=== PATIENT | female | born 1935 ===

== ENCOUNTER 2020-06-12 18:05 | Inpatient (IN) ==
[2020-06-12] MEDS ORDERED: Ondansetron 4 mg VIAL 2 MG/ML 2 ml VIAL IV PRN (20:21)
[2020-06-12] MEDS ORDERED: Iohexol 350 (CONTRAST) 500 ML MDV IV ONE (21:47)
[2020-06-13] MEDS: Heparin 5000 UNITS/ML 1 mL VIAL SUBCUT SCH ×2 (00:04→06:04)
[2020-06-13] MEDS: cefTRIAXone 1 gm/50 mL NS BAG 1 GM/50 ML BAG IVPB SCH (00:14)
[2020-06-13] MEDS ORDERED: Azithromycin 500 mg/250 ml NS 500 MG/250 ML BAG IVPB ONE (00:30)
[2020-06-13 01:28] LABS: Urine Appearance Clear; Urine Bilirubin Negative (Negative); Urine Blood 1+ (Negative); Urine Color Yellow; Urine Glucose Negative (Negative); Urine Ketones Trace (Negative); Urine Nitrite Negative (Negative); Urine Protein Negative (Negative); Urine Specific Gravity 1.043 (1.010-1.030); Urine Urobilinogen Negative (Negative)
[2020-06-13 01:40] LABS: Urine Bacteria Absent (Absent); Urine Red Blood Cell 3+(>10/hpf) (Absent); Urine White Blood Cell Trace(0-5/hpf) (Absent)
[2020-06-13 07:01] LABS: ABS Lymphocytes 1.3 10^3/ul (1.0-4.8); ABS Monocytes 0.5 10^3/ul (0-0.8); ABS Neutrophils 7.5 10^3/ul (1.5-7.7); Hematocrit 37 % (35-47); Hemoglobin 12.9 g/dL (12.0-16.0); Lymphocyte % 13.7 %; Mean Corpuscular HGB Conc 35 g/dL (31-36); Mean Corpuscular Hemoglobin 33 pg (27-31); Mean Corpuscular Volume 96 fL (80-97); Mean Platelet Volume 8.4 fL (7.4-10.4); Platelet Count 171 10^3/uL (150-450); Red Blood Count 3.89 10^6 /uL (3.70-4.87); Red Cell Distribution Width 13 % (10-15); White Blood Count 9.3 10^3/uL (3.5-10.8)
[2020-06-13 07:28] LABS: BUN/Creatinine Ratio 21.8 (8-20); Calcium 9.6 mg/dL (8.6-10.3); EGFR African American 84.9 (>60); EGFR Non-African American 70.2 (>60); HDL Cholesterol 59.1 mg/dL; Potassium 3.5 mmol/L (3.5-5.0)
[2020-06-13] MEDS: Enoxaparin 30 MG/0.3 ML SYR SUBCUT SCH (12:24)
[2020-06-13] MEDS ORDERED: Lactated Ringers 1000 ml BAG 500 ML IV SCH (18:00)
[2020-06-13] MEDS ORDERED: NS 0.9% 500 ml BAG 500 ML IV ONE (23:19)
[2020-06-13 23:38] LABS: TSH Ultra Thyroid Stim Horm 0.91 mcIU/mL (0.34-5.60)
[2020-06-14] MEDS: cefTRIAXone 1 gm/50 mL NS BAG 1 GM/50 ML BAG IVPB SCH ×2 (01:13→23:27)
[2020-06-14] MEDS: Enoxaparin 30 MG/0.3 ML SYR SUBCUT SCH (12:12)
[2020-06-15] MEDS: Enoxaparin 30 MG/0.3 ML SYR SUBCUT SCH (12:20)
[2020-06-16 12:18] VITALS: BP 127/52
[2020-06-16] MEDS: Enoxaparin 30 MG/0.3 ML SYR SUBCUT SCH (14:41)
== END 2020-06-16 15:31 | disposition home health service (06) | DRG 57 ==
LOC: MEDTELE 20:40
PROVIDERS: ADMIT Student in an Organized Health Care Education/Training Program; ATTEND Internal Medicine